=== PATIENT | male | born 1950 | race Caucasian/White ===

== ENCOUNTER 2023-03-04 15:46 | Inpatient (IN) | payer MEDICARE, OTHER ==
[~2023-03-04] VITALS: Ht 172.7 cm; Wt 92.5 kg
[2023-03-04] MEDS: MAGNESIUM SULFATE/D5W 100 ML IV SCH ×3 (03:15→20:38)
[2023-03-04] MEDS ORDERED: LISI10TA29 MT (16:08)
[2023-03-04] MEDS ORDERED: ALPR2TAB7 MT (16:08)
[2023-03-04] MEDS ORDERED: OMEP1CAP25 MT (16:08)
[2023-03-04] MEDS ORDERED: DICY10CA21 PO (16:08)
[2023-03-04] MEDS ORDERED: SIMV-46 MT (16:08)
[2023-03-04] MEDS ORDERED: GABA-532 (16:08)
[2023-03-04] MEDS ORDERED: ASPI-1420 MT (16:08)
[2023-03-04] MEDS ORDERED: METF-867 MT (16:08)
[2023-03-04] MEDS ORDERED: TRAM50TA2 MT (16:08)
[2023-03-04] MEDS ORDERED: ATEN25TA MT (16:08)
[2023-03-04] MEDS ORDERED: SERT-439 MT (16:08)
[2023-03-04 16:25] LABS: *BILIRUBIN,URIN NEGATIVE (NEGATIVE); *BLOOD, URINE 1+ (NEGATIVE); *CLARITY,URINE CLEAR (CLEAR); *COLOR,URINE YELLOW (YELLOW); *KETONES,URINE TRACE (NEGATIVE); *UROBILINOGEN,URINE 0.2 E.U./dl (NORMAL); LEUKOCYTE ESTERASE ,URINE NEGATIVE (NEGATIVE); NITRITE, URINE NEGATIVE (NEGATIVE); PH,URINE 5.5 (5.0-8.0); UGLUCOSE NEGATIVE (NEGATIVE)
[2023-03-04 16:28] LABS: HEMATOCRIT 41.1 % (36.7-47.1); MEAN CORPUSCULAR HEMOGLOBIN 28.7 uug (23.8-33.4); MEAN CORPUSCULAR VOLUME 85.9 fL (73.0-96.2); PLATELET COUNT (AUTO) 341 K/uL (152-348)
--- NOTE | 2023-03-04 16:31 | NUR ---
PT IS IN ROOM #2A. DR FISCHER EVALUATED THE PT.
[2023-03-04 16:39] LABS: CREATININE 1.1 mg/dL (0.6-1.3); POTASSIUM 2.9 mmol/L (3.5-5.1)
[2023-03-04 16:50] LABS: BILIRUBIN,DIRECT 0.2 mg/dL (0.0-0.2); BILIRUBIN,TOTAL 0.7 mg/dL (0.2-1.0); TOTAL PROTEIN, SERUM 7.6 g/dL (6.4-8.2)
[2023-03-04] MEDS ORDERED: LIDOCAINE 2% (GLYDO= UROJET) 10 ML JELLY MM ONE ×2 (18:30→19:07)
--- NOTE | 2023-03-04 18:57 | NUR ---
Dr. Garner on surgery phone call consult with Dr. Rudolph
[2023-03-04] MEDS ORDERED: METRONIDAZOLE 500 MG/NS 100 ML PIGGYBACK IV ONE (19:15)
[2023-03-04] MEDS ORDERED: MORPHINE SULFATE 2 MG/1 ML DISP.SYRIN IV PRN (19:30)
[2023-03-04] MEDS ORDERED: REMEDY ESSENTIAL ZINC PASTE 113 GM TP PRN (19:30)
[2023-03-04] MEDS ORDERED: MAGNESIUM HYDROXIDE 30 ML LIQUID UDC PO PRN (19:30)
[2023-03-04] MEDS ORDERED: HYDROCODONE/APAP 5-325MG TABLET PO PRN (19:30)
[2023-03-04] MEDS ORDERED: ACETAMINOPHEN 325 MG TABLET PO PRN (19:30)
[2023-03-04] MEDS ORDERED: IV D5 1/2 NS 1000 ML 1,000 ML IV PRN (19:30)
[2023-03-04] MEDS ORDERED: MAGNESIUM SULFATE/D5W 100 ML ONE ×3 (19:56→21:49)
--- NOTE | 2023-03-04 20:11 | NUR ---
NG placement verification by auscultation performed by myself and Charge Nurse Krzysztof BLACKMAN
--- NOTE | 2023-03-04 20:20 | NUR ---
Spoke to OR Nurse Tiera, patient is scheduled for surgery tonight at 22:00
[2023-03-04] MEDS ORDERED: POTASSIUM CHLORIDE 50 ML ONE ×2 (20:22→21:12)
[2023-03-04] MEDS: POTASSIUM CHLORIDE 50 ML IV SCH ×3 (20:33→22:15)
--- NOTE | 2023-03-04 20:40 | NUR ---
Second IV started to right AC 20G
[2023-03-04] MEDS ORDERED: METRONIDAZOLE 500 MG/NS 100ML 100 ML IV ONE (20:49)
[2023-03-04] MEDS ORDERED: CIPROFLOXACIN IV 400 MG in PREMIXED 1 EACH IV SCH ×2 (21:00)
[2023-03-04] MEDS ORDERED: GLYCOPYRROLATE 0.2 MG/ML VIAL ONE (21:30)
[2023-03-04] MEDS ORDERED: METOCLOPRAMIDE HCL 10 MG/2 ML VIAL ONE (21:30)
[2023-03-04] MEDS ORDERED: NEOSTIGMINE METHYLSULFATE 10 MG/10 ML VIAL ONE (21:30)
[2023-03-04] MEDS ORDERED: ONDANSETRON 4 MG/2 ML VIAL ONE (21:30)
[2023-03-04] MEDS ORDERED: LIDOCAINE-MPF 2% 5 ML VIAL ONE (21:30)
[2023-03-04] MEDS ORDERED: DEXAMETHASONE SOD PHOSPHATE 4 MG INJ ONE (21:30)
[2023-03-04] MEDS ORDERED: PROPOFOL 200 MG/20 ML BOTTLE ONE (21:30)
[2023-03-04] MEDS ORDERED: SUCCINYLCHOLINE CHLORIDE 200 MG/10 ML VIAL ONE (21:30)
[2023-03-04] MEDS ORDERED: CEFAZOLIN 1 G VIAL ONE (21:30)
--- NOTE | 2023-03-04 21:38 | NUR ---
Patient taken to OR via RN Tiera Addendum: 03/05/23 at 0421 by ROSE Report given to Tiera BLACKMAN
[2023-03-04] MEDS ORDERED: HYDROMORPHONE 2 MG/1 ML DISP.SYRIN ONE (21:53)
[2023-03-04] MEDS ORDERED: KETAMINE HCL 200 MG/20 ML VIAL ONE (21:53)
[2023-03-04] MEDS ORDERED: FENTANYL CITRATE 100 MCG/2 ML AMPUL ONE (21:53)
[2023-03-04] MEDS ORDERED: MIDAZOLAM HCL 2 MG/2 ML VIAL ONE (21:54)
[2023-03-04] MEDS ORDERED: DICYCLOMINE HCL 10 MG CAPSULE PO PRN (22:30)
[2023-03-04] MEDS ORDERED: DEXTROSE 50% 50 ML DISP.SYRIN IV PRN (22:30)
[2023-03-04] MEDS ORDERED: SEVOFLURANE 250 ML BOTTLE ONE (23:54)
[2023-03-05 00:08] LABS: BACTERIA,URINE RARE /HPF (NONE SEEN); SQUAMOUS EPITHELIAL CELL,UR FEW /HPF (NONE SEEN); WBC,URINE 0-3 /HPF (0-3)
[2023-03-05] MEDS ORDERED: BACITRACIN ZINC OINT 15 GM TUBE ONE (00:31)
[2023-03-05 02:56] LABS: HEMATOCRIT 42.6 % (36.7-47.1); MEAN CORPUSCULAR VOLUME 88.1 fL (73.0-96.2); PLATELET COUNT (AUTO) 310 K/uL (152-348)
[2023-03-05 03:03] LABS: CREATININE 1.1 mg/dL (0.6-1.3); MAGNESIUM 1.8 mg/dL (1.8-2.4); POTASSIUM 4.4 mmol/L (3.5-5.1)
--- NOTE | 2023-03-05 03:15 | NUR ---
Admitted patient on Tele floor from OR S/P Exploratory Lap, Left Hemicolectomy, proximal colostomy and Ortiz pouch creation by DR Holley Rudolph. Patient alert oriented, with NGT right nose connected to intermittently, patient has surgical dressing on abdomen, clean no blood stained seen, patient has tubbs cath draining with yellow color urine in moderate amount, JACLYN has 1/2 serosanguineous drainage[address]d in place, complaining of abdominal 9/10, will medicate as ordered, patient has colostomy bag beefy red in color with small red brownish color BM, cont to monitor.
[2023-03-05] MEDS ORDERED: HYDROMORPHONE 2 MG/1 ML DISP.SYRIN IM PRN (04:45)
[2023-03-05] MEDS: IV LACTATED RINGERS SOLUTION 1,000 ML IV PRN (04:45)
[2023-03-05 05:33] VITALS: BP 156/74
[2023-03-05] MEDS: METRONIDAZOLE 500 MG/NS 100ML 500 MG in PREMIXED 1 EACH IV SCH ×3 (05:37→20:14)
[2023-03-05] MEDS: CIPROFLOXACIN IV 400 MG in PREMIXED 1 EACH IV SCH ×2 (05:40→17:50)
[2023-03-05] MEDS: HYDROMORPHONE 2 MG/1 ML DISP.SYRIN IVP PRN ×3 (05:44→17:01)
[2023-03-05] MEDS: BLOOD SUGAR DIAGNOSTIC 1 EACH STRIP VI SCH ×4 (05:56→17:58)
[2023-03-05] MEDS: INSULIN REGULAR, HUMAN 300 UNIT/3 ML VIAL SQ PRN ×3 (06:00→17:59)
[2023-03-05] MEDS: LORAZEPAM 2 MG/1 ML VIAL IV SCH ×2 (06:00→20:46)
--- NOTE | 2023-03-05 06:52 | NUR ---
Patient asleep but arousable,complaining of pain, given Dilaudid 2mg iv for pain with help after 30 min, JACLYN has 60cc serosanguineous, tubbs has 450 cc yellow color urine, patient asleep now, no further complain of pain, NPO at this time, but can has ice chips, Ativan not given patient asleep, cont to monitor. t
[2023-03-05 06:56] LABS: HEMATOCRIT 39.1 % (36.7-47.1); MEAN CORPUSCULAR VOLUME 86.7 fL (73.0-96.2); PLATELET COUNT (AUTO) 320 K/uL (152-348)
[2023-03-05 07:33] LABS: THYROID STIMULATING HORMONE 1.013 mIU/mL (0.358-3.740)
[2023-03-05] MEDS ORDERED: HYDROCODONE/APAP 5-325MG TABLET NG PRN (07:51)
[2023-03-05] MEDS ORDERED: MAGNESIUM HYDROXIDE 30 ML LIQUID UDC NG PRN (07:52)
[2023-03-05 07:53] LABS: CARBON DIOXIDE 17 mmol/L (21-32); CHLORIDE 107 mmol/L (98-107); CREATININE 1.1 mg/dL (0.6-1.3); GLUCOSE 180 mg/dL (74-106); MAGNESIUM 1.8 mg/dL (1.8-2.4); PHOSPHOROUS 2.2 mg/dL (2.5-4.9); POTASSIUM 4.2 mmol/L (3.5-5.1); UREA NITROGEN, BLOOD 11 mg/dL (7-18)
[2023-03-05] MEDS ORDERED: ACETAMINOPHEN 650 MG/20.3 ML LIQUID UDC NG PRN (08:00)
[2023-03-05] MEDS ORDERED: DICYCLOMINE HCL LIQ 10 MG/5 ML UDC NG PRN (08:00)
[2023-03-05] MEDS ORDERED: PANTOPRAZOLE SODIUM 40 MG VIAL IV SCH (09:00)
[2023-03-05] MEDS ORDERED: ATENOLOL 25 MG TABLET NG SCH (09:00)
--- NOTE | 2023-03-05 09:26 | NUR ---
removed NGT tube and NPO except meds was ordered per Dr. Rudolph.
[2023-03-05 09:39] VITALS: BP 129/59
[2023-03-05] MEDS: SERTRALINE HCL 50 MG TABLET NG SCH (09:40)
[2023-03-05] MEDS: LISINOPRIL 10 MG TABLET NG SCH (09:40)
--- NOTE | 2023-03-05 09:48 | NUR ---
nursing swallo eval done. no dysphagia noted. pt tolerated PO meds.
[2023-03-05] MEDS ORDERED: NEUTRA PHOS PACKET PO ONE (10:00)
[2023-03-05] MEDS: MAGNESIUM SULFATE/D5W 100 ML IV SCH ×4 (10:23→13:01)
[2023-03-05 11:34] VITALS: BP 104/51
[2023-03-05 15:47] VITALS: BP 117/51
[2023-03-05] MEDS: SIMVASTATIN 20 MG TABLET NG SCH (17:51)
[2023-03-05 19:58] VITALS: BP 93/41
[2023-03-06 00:20] VITALS: BP 99/39
[2023-03-06] MEDS: INSULIN REGULAR, HUMAN 300 UNIT/3 ML VIAL SQ PRN ×3 (00:27→17:22)
[2023-03-06] MEDS: BLOOD SUGAR DIAGNOSTIC 1 EACH STRIP VI SCH ×5 (00:27→23:15)
[2023-03-06 04:05] VITALS: BP 112/49
[2023-03-06] MEDS: METRONIDAZOLE 500 MG/NS 100ML 500 MG in PREMIXED 1 EACH IV SCH ×3 (04:35→20:39)
--- NOTE | 2023-03-06 05:45 | NUR ---
SHIFT NOTE: RECEIVED PATIENT ALERT AND ORIENTED X4 REPORT GIVEN BY AM NURSE BERNARD. PATIENT HAS IV FLUID OF LR INFUSING AT 100 ML AND HOUR NO SIGNS ADVERSE REACTION FROM SITE. PT HAS O22L NC ALONG WITH INCENTIVE SPIROMETER. PT IS S/P HEMILECTOMY EX LAP PT HAS S/P LT COLOSTOMY, AND RT JACLYN DRAIN TOLERATING WELL PROCEDURE DONE BY DR RUELAS PT HAS GARSIA PATENT DRAINING CLEAR YELLOW URINE. PT IS ON TELEMONITOR SHOWS SINUS RHYTHM. PT HAS BEEN NPO SINCE MIDNIGHT FOR ULTRA SOUND OF THE ABD AND CHEST FULL BODY. NO SIGNS RESPIRATORY DISTRESS NOTED. FALL AND SAFETY PRECAUTION NOTED. WILL CONTINUE TO MONITOR FOR SAFETY. WILL ENDORSE TO AM NURSE.
[2023-03-06] MEDS: CIPROFLOXACIN IV 400 MG in PREMIXED 1 EACH IV SCH ×2 (06:04→16:23)
[2023-03-06 06:25] LABS: HEMATOCRIT 33.4 % (36.7-47.1); MEAN CORPUSCULAR HEMOGLOBIN 28.7 uug (23.8-33.4); MEAN CORPUSCULAR VOLUME 86.1 fL (73.0-96.2); PLATELET COUNT (AUTO) 278 K/uL (152-348)
[2023-03-06 06:42] LABS: CREATININE 1.2 mg/dL (0.6-1.3); MAGNESIUM 2.1 mg/dL (1.8-2.4); PHOSPHOROUS 2.2 mg/dL (2.5-4.9); POTASSIUM 4.7 mmol/L (3.5-5.1)
[2023-03-06] MEDS: IV LACTATED RINGERS SOLUTION 1,000 ML IV PRN ×2 (08:05→14:02)
[2023-03-06] MEDS: LORAZEPAM 2 MG/1 ML VIAL IV SCH ×2 (08:32→20:38)
[2023-03-06] MEDS: ATENOLOL 25 MG TABLET PO SCH (08:32)
[2023-03-06] MEDS: LISINOPRIL 10 MG TABLET NG SCH (08:33)
[2023-03-06] MEDS: SERTRALINE HCL 50 MG TABLET NG SCH (08:33)
[2023-03-06] MEDS: PANTOPRAZOLE ORAL SUSPENSION 40 MG SUSPDR.PKT NG SCH (08:34)
--- NOTE | 2023-03-06 09:00 | NUR ---
RCVD PT IN BED AAO X4. NPO. 2 LPM NC SATURATING 93%.
[2023-03-06 10:06] LABS: CANCER AG, 125 20.9 U/mL (Not Estab.)
[2023-03-06 11:34] VITALS: BP 98/50
[2023-03-06] MEDS: HYDROMORPHONE 2 MG/1 ML DISP.SYRIN IVP PRN (11:43)
[2023-03-06] MEDS ORDERED: IOHEXOL 300MG/ML 100 ML INFUS..BTL ONE (12:29)
[2023-03-06] MEDS ORDERED: SWABABLE VALVE TRANSFER SET EA MC ONE (12:29)
[2023-03-06] MEDS ORDERED: IV NORMAL SALINE 250 ML IV ONE (12:29)
[2023-03-06 15:33] VITALS: BP 102/51
[2023-03-06] MEDS ORDERED: NEUTRA PHOS PACKET NG ONE (16:00)
[2023-03-06] MEDS: SIMVASTATIN 20 MG TABLET NG SCH (17:04)
--- NOTE | 2023-03-06 18:06 | NUR ---
POSPONED CT ABD/CHEST/PELVIS WITH CONTRAST. PER DR RUELAS, HE DOESNT NEED AT THIS TIME BECAUSE OF POST SURGERY SITUATION. JASON MARIE AGREED ON THIS. PT. IN REGULAR DIET. IV LR ON LEFT AC AT 100CC/HR PATENT. JACLYN DRAIN 175CC. FC OUTPUT 260CC. PT. DENIES PAIN AT THIS TIME.
--- NOTE | 2023-03-06 18:22 | NUR ---
ADDENDUM: GARSIA OUTPUT IS TOTAL OF 1860 CC. COLOSTOMY OUTPUT IS 70CC.
[2023-03-06 20:08] VITALS: BP 101/40
[2023-03-07 00:11] VITALS: BP 105/51
[2023-03-07] MEDS: IV LACTATED RINGERS SOLUTION 1,000 ML IV PRN (01:32)
[2023-03-07] MEDS: HYDROMORPHONE 2 MG/1 ML DISP.SYRIN IVP PRN (02:28)
[2023-03-07 04:00] VITALS: BP 95/47
[2023-03-07] MEDS: METRONIDAZOLE 500 MG/NS 100ML 500 MG in PREMIXED 1 EACH IV SCH ×3 (04:07→21:09)
[2023-03-07] MEDS: CIPROFLOXACIN IV 400 MG in PREMIXED 1 EACH IV SCH ×2 (05:05→18:04)
[2023-03-07 06:38] LABS: HEMATOCRIT 36.8 % (36.7-47.1); MEAN CORPUSCULAR HEMOGLOBIN 28.8 uug (23.8-33.4); MEAN CORPUSCULAR VOLUME 86.8 fL (73.0-96.2); PLATELET COUNT (AUTO) 370 K/uL (152-348)
[2023-03-07] MEDS: BLOOD SUGAR DIAGNOSTIC 1 EACH STRIP VI SCH ×4 (06:43→21:00)
[2023-03-07] MEDS ORDERED: DICYCLOMINE HCL 10 MG CAPSULE PO PRN (07:15)
[2023-03-07] MEDS ORDERED: ACETAMINOPHEN 325 MG TABLET PO PRN (07:15)
[2023-03-07 07:16] LABS: CARBON DIOXIDE 25 mmol/L (21-32); CHLORIDE 101 mmol/L (98-107); CREATININE 1.4 mg/dL (0.6-1.3); GLUCOSE 128 mg/dL (74-106); MAGNESIUM 2.1 mg/dL (1.8-2.4); POTASSIUM 4.7 mmol/L (3.5-5.1); UREA NITROGEN, BLOOD 23 mg/dL (7-18)
--- NOTE | 2023-03-07 07:26 | NUR ---
REPORT GIVEN TO HIRAL WAGNER
[2023-03-07 08:50] VITALS: BP 102/52
[2023-03-07] MEDS: ATENOLOL 25 MG TABLET PO SCH (08:55)
[2023-03-07] MEDS: LISINOPRIL 10 MG TABLET NG SCH (08:55)
[2023-03-07] MEDS: SERTRALINE HCL 50 MG TABLET NG SCH (08:55)
[2023-03-07] MEDS: PANTOPRAZOLE ORAL SUSPENSION 40 MG SUSPDR.PKT NG SCH (08:55)
[2023-03-07] MEDS ORDERED: HYDROCODONE/APAP 5-325MG TABLET PO PRN (11:01)
[2023-03-07] MEDS ORDERED: MAGNESIUM HYDROXIDE 30 ML LIQUID UDC PO PRN (11:02)
[2023-03-07 11:39] VITALS: BP 105/46
[2023-03-07 16:00] VITALS: BP 109/55
[2023-03-07] MEDS: LORAZEPAM 2 MG/1 ML VIAL IV PRN ×2 (18:04→23:32)
--- NOTE | 2023-03-07 19:05 | NUR ---
shift report: pt aox3. in no acute distress. amb w/fww w/ PT. pt on 2L saturating at 94-95. pt denies pain and nausea/vomiting. colostomy bag replaced. 30cc of brown liquid stool noted. JACLYN drain draining well 375 ml of serosanguineous fluid noted. i spoke with dr. scott regarding the concern of inflamed ostomy but said its was normal and there nothing concerning. pt still on ABX tx. FC patent and draining yellow urine. safety measure in placed. all need attended.
[2023-03-07 20:00] VITALS: BP 110/59
[2023-03-07] MEDS ORDERED: SIMVASTATIN 20 MG TABLET PO SCH (21:00)
[2023-03-07] MEDS: ATORVASTATIN 10 MG TABLET PO SCH (21:09)
[2023-03-07] MEDS: PIPERACILLIN SODIUM/TAZOBACTAM 3.375 G in IV DEXTROSE 5% 50 ML IV SCH (22:46)
[2023-03-08] VITALS: BP 102/45
--- NOTE | 2023-03-08 00:34 | NUR ---
shift report: Spoke to Dr. Rudolph regarding pt. concern of draining from tubbs. Dr. Rudolph advised to flushed and do bladder scan and give pt ativan and pain meds. Pt flushed and bladder scan done = 5ml .Pt given ativan and NOrco. Pt is sleeping at this time
[2023-03-08] MEDS: IV LACTATED RINGERS SOLUTION 1,000 ML IV PRN ×3 (01:39→22:15)
[2023-03-08] MEDS: ONDANSETRON 4 MG/2 ML VIAL IV PRN ×2 (03:56→06:18)
[2023-03-08 04:00] VITALS: BP 106/51
[2023-03-08] MEDS: CIPROFLOXACIN IV 400 MG in PREMIXED 1 EACH IV SCH (05:00)
[2023-03-08] MEDS: BLOOD SUGAR DIAGNOSTIC 1 EACH STRIP VI SCH ×3 (06:23→18:26)
[2023-03-08] MEDS: PIPERACILLIN SODIUM/TAZOBACTAM 3.375 G in IV DEXTROSE 5% 50 ML IV SCH (06:27)
--- NOTE | 2023-03-08 06:44 | NUR ---
Pt vomited large amount of dark coffee ground emesis around 0330. Dr. Rudolph was contacted to request order for NGT. Doctor ordered to put pt on NPO and to stop Tylenol and Neurontin. Stanley tai
[2023-03-08 06:46] LABS: HEMATOCRIT 39.3 % (36.7-47.1); MEAN CORPUSCULAR HEMOGLOBIN 28.8 uug (23.8-33.4); MEAN CORPUSCULAR VOLUME 85.9 fL (73.0-96.2); PLATELET COUNT (AUTO) 439 K/uL (152-348)
[2023-03-08 07:00] LABS: ALANINE AMINOTRANSFERASE 20 U/L (16-63); ALKALINE PHOSPHATASE 59 U/L (50-136); ASPARTATE AMINOTRANSFERASE 14 U/L (15-37); BILIRUBIN,TOTAL 0.6 mg/dL (0.2-1.0); CARBON DIOXIDE 26 mmol/L (21-32); CHLORIDE 98 mmol/L (98-107); CREATINE KINASE, TOTAL 176 U/L (39-308); CREATININE 1.4 mg/dL (0.6-1.3); GLUCOSE 140 mg/dL (74-106); MAGNESIUM 1.9 mg/dL (1.8-2.4); PHOSPHOROUS 3.9 mg/dL (2.5-4.9); POTASSIUM 4.4 mmol/L (3.5-5.1); TOTAL PROTEIN, SERUM 6.4 g/dL (6.4-8.2); UREA NITROGEN, BLOOD 26 mg/dL (7-18)
[2023-03-08] MEDS ORDERED: PANTOPRAZOLE SODIUM 40 MG TABLET.DR PO SCH (07:00)
--- NOTE | 2023-03-08 07:25 | NUR ---
Received pt. AAOX4, cooperative with care plan, On NSR with sbp within desired limits. IV line TKO and a couple of antibiotics notice to be hanging and full with medications. Clarification requested and as per endorsing R.N. medications not compatible and he is running them late. Antibiotic completed at 0830. and as reported pt. HL despite having an order for fluids. IVF resumed as ordered. MLine abdominal incision with original dressing on no s/s of complications, ileostomy in place noted with watery stools. Andres to RLQ with serous sanguinous output. tubbs to gravity, and pt. NPO.
[2023-03-08 08:00] VITALS: BP 109/51
[2023-03-08] MEDS ORDERED: SERTRALINE HCL 50 MG TABLET PO SCH (09:00)
[2023-03-08] MEDS: ATENOLOL 25 MG TABLET PO SCH (09:00)
--- NOTE | 2023-03-08 09:40 | NUR ---
Surgeon Ronni at bedside and updating pt. of care plan. Pt. also verbalized feeling depressed and express desire to be dcd immediately. educated pt. on post surgery plan and then order ativan to be given. At this time attending Olegario Hernandez also came to follow up on pt and He's aware of surgeons orders. At this time orders to give ativan only if pt. show signs of distress and feeling uneasy. awaiting orders for antidepressants as stated by attending.
[2023-03-08 11:39] VITALS: BP 112/53
--- NOTE | 2023-03-08 12:47 | NUR ---
WOUND CARE CONSULT: PT PRESENTS WITH DRY, INTACT ABDOMINAL SURGICAL DRESSING, JACLYN DRAIN AND OSTOMY. DEFER TO SURGEON FOR SURGICAL SITES. DISCUSSED SKIN PROTECTION WITH NURSING STAFF. PT IS CONTINENT AT THIS TIME WITH OSTOMY AND GARSIA CATH. IN AGREEMENT WITH PLAN OF CARE.
[2023-03-08] MEDS: QUETIAPINE FUMARATE 25 MG TABLET PO SCH (13:02)
[2023-03-08] MEDS: PIPERACILLIN SODIUM/TAZOBACTAM 3.375 G in IV DEXTROSE 5% 100 ML IV SCH ×2 (13:02→21:59)
[2023-03-08] MEDS ORDERED: PIPERACILLIN SODIUM/TAZOBACTAM 3.375 G in IV DEXTROSE 5% 50 ML IV SCH (14:00)
[2023-03-08 15:47] VITALS: BP 101/55
[2023-03-08] MEDS: PANTOPRAZOLE SODIUM 40 MG VIAL IV SCH (16:26)
--- NOTE | 2023-03-08 18:05 | NUR ---
A call from Surgeon Dr. Rudolph report given and orders to start pt. on malox received first dose to be given now.
[2023-03-08] MEDS ORDERED: MAG HYDROX/AL HYDROX/SIMETH 30 ML LIQUID UDC PO PRN (18:15)
--- NOTE | 2023-03-08 19:30 | NUR ---
Received patient in bed awake, alert and oriented x3, in no acute distress. No complain of abdominal pain, no episode of vomiting. Abdominal incision with original dressing in placed. Ileostomy intact connected to bag with liquid stool. JACLYN to bulb suction with serosanguineous discharge. Cross cath intact and patent draining to yellow color urine.
[2023-03-08 20:22] VITALS: BP 111/52
[2023-03-08] MEDS: ATORVASTATIN 10 MG TABLET PO SCH (21:00)
[2023-03-09 00:05] VITALS: BP 115/45
[2023-03-09] MEDS: MAG HYDROX/AL HYDROX/SIMETH 30 ML LIQUID UDC PO SCH ×6 (00:06→20:07)
[2023-03-09] MEDS: BLOOD SUGAR DIAGNOSTIC 1 EACH STRIP VI SCH ×4 (00:06→18:20)
[2023-03-09 04:20] VITALS: BP 112/56
[2023-03-09] MEDS: IV LACTATED RINGERS SOLUTION 1,000 ML IV PRN ×3 (05:04→20:08)
[2023-03-09] MEDS: PIPERACILLIN SODIUM/TAZOBACTAM 3.375 G in IV DEXTROSE 5% 100 ML IV SCH ×3 (05:56→21:33)
--- NOTE | 2023-03-09 07:13 | NUR ---
Slept well throughout the night, no complain of abdominal pain, no nausea/vomiting. VS within normal limits. Needs assessed and attended to.
[2023-03-09 07:46] LABS: HEMATOCRIT 34.4 % (36.7-47.1); MEAN CORPUSCULAR HEMOGLOBIN 29.5 uug (23.8-33.4); MEAN CORPUSCULAR VOLUME 86.5 fL (73.0-96.2); PLATELET COUNT (AUTO) 327 K/uL (152-348)
--- NOTE | 2023-03-09 08:00 | NUR ---
Received pt. lying in bed awake, alert and oriented. Pt. with IVF LR at 150cc/hr at RAC #20 intact and patent, SR on tele at 78 bpm not in distress, no complain of pain or . Pt. with O2 inhalation at 2 lpm saturating at 93%. Pt. with tubbs catheter connected to urine bag. Ileostomy bag intact and JACLYN drain monitored and recorded
[2023-03-09 08:10] VITALS: BP 115/51
[2023-03-09 09:00] LABS: CARBON DIOXIDE 26 mmol/L (21-32); CHLORIDE 103 mmol/L (98-107); CREATININE 1.3 mg/dL (0.6-1.3); GLUCOSE 100 mg/dL (74-106); MAGNESIUM 1.6 mg/dL (1.8-2.4); PHOSPHOROUS 2.6 mg/dL (2.5-4.9); POTASSIUM 4.1 mmol/L (3.5-5.1); UREA NITROGEN, BLOOD 21 mg/dL (7-18)
[2023-03-09] MEDS: PANTOPRAZOLE SODIUM 40 MG VIAL IV SCH (09:27)
[2023-03-09] MEDS: QUETIAPINE FUMARATE 25 MG TABLET PO SCH ×2 (09:28→12:03)
[2023-03-09] MEDS: ATENOLOL 25 MG TABLET PO SCH (09:28)
--- NOTE | 2023-03-09 09:55 | NUR ---
Seen and examined by Cindy TRIM OPERATOR, continue care plan
[2023-03-09 11:31] VITALS: BP 107/47
[2023-03-09 16:00] VITALS: BP 121/55
[2023-03-09 17:06] LABS: A/G RATIO 0.8 (0.7-1.7); ALBUMIN 2.5 g/dL (2.9-4.4); ALPHA-1-GLOBULIN 0.4 g/dL (0.0-0.4); ALPHA-2-GLOBULIN 1.1 g/dL (0.4-1.0); BETA GLOBULIN 0.9 g/dL (0.7-1.3); GLOBULIN, TOTAL 3.3 g/dL (2.2-3.9); M-SPIKE Not Observed g/dL (Not Observed)
[2023-03-09] MEDS: ATORVASTATIN 10 MG TABLET PO SCH (20:07)
[2023-03-09 20:53] VITALS: BP 125/58
[2023-03-09] MEDS: ZOLPIDEM 5 MG TABLET PO PRN (22:53)
[2023-03-09] MEDS: HYDROMORPHONE 1 MG/1 ML DISP.SYRIN IV PRN (23:14)
[2023-03-10] MEDS: BLOOD SUGAR DIAGNOSTIC 1 EACH STRIP VI SCH ×4 (00:04→18:04)
[2023-03-10] MEDS: MAG HYDROX/AL HYDROX/SIMETH 30 ML LIQUID UDC PO SCH ×6 (00:05→20:00)
[2023-03-10] MEDS: LORAZEPAM 2 MG/1 ML VIAL IV PRN (03:14)
[2023-03-10] MEDS: IV LACTATED RINGERS SOLUTION 1,000 ML IV PRN (03:20)
[2023-03-10] MEDS: HYDROMORPHONE 1 MG/1 ML DISP.SYRIN IV PRN ×2 (03:49→09:07)
[2023-03-10 04:20] VITALS: BP 131/65
[2023-03-10] MEDS: PIPERACILLIN SODIUM/TAZOBACTAM 3.375 G in IV DEXTROSE 5% 100 ML IV SCH ×3 (05:58→22:22)
--- NOTE | 2023-03-10 06:44 | NUR ---
Slept intermittently, easy to arouse alert and oriented x3. No adverse reaction from IV antibiotic. Complain of abdominal pain, no nausea/vomiting. Colostomy intact with liquid stool. Cross cath intact w/ yellow color urine output.
[2023-03-10 07:03] LABS: HEMATOCRIT 37.4 % (36.7-47.1); MEAN CORPUSCULAR HEMOGLOBIN 29.6 uug (23.8-33.4); MEAN CORPUSCULAR VOLUME 86.4 fL (73.0-96.2); PLATELET COUNT (AUTO) 382 K/uL (152-348)
[2023-03-10 07:53] LABS: CARBON DIOXIDE 27 mmol/L (21-32); CHLORIDE 100 mmol/L (98-107); CREATININE 1.1 mg/dL (0.6-1.3); GLUCOSE 116 mg/dL (74-106); MAGNESIUM 1.6 mg/dL (1.8-2.4); PHOSPHOROUS 3.4 mg/dL (2.5-4.9); POTASSIUM 4.2 mmol/L (3.5-5.1); UREA NITROGEN, BLOOD 16 mg/dL (7-18)
--- NOTE | 2023-03-10 08:00 | NUR ---
Received patient awake, alert and oriented. SR on tele HR at 74bpm, with O2 inhalation at 2 lpm via nasal cannula. Cross catheter connected to urine bag draining well. Patient with JACLYN drain monitoring output and Ostomy bag intact. 0900 - Patient complaining of pain, Dilaudid IV given as needed. Observed accordingly
[2023-03-10] MEDS: PANTOPRAZOLE SODIUM 40 MG VIAL IV SCH (08:15)
[2023-03-10] MEDS: ATENOLOL 25 MG TABLET PO SCH (08:16)
[2023-03-10] MEDS: QUETIAPINE FUMARATE 25 MG TABLET PO SCH ×2 (08:16→13:00)
[2023-03-10] MEDS ORDERED: SWABABLE VALVE TRANSFER SET EA MC ONE (08:58)
[2023-03-10] MEDS ORDERED: IOHEXOL 300MG/ML 100 ML INFUS..BTL ONE (08:58)
[2023-03-10] MEDS ORDERED: IV NORMAL SALINE 250 ML IV ONE (08:58)
[2023-03-10] MEDS: MAGNESIUM SULFATE/D5W 100 ML IV SCH ×2 (09:10→11:01)
[2023-03-10 11:03] VITALS: BP 132/70
[2023-03-10] MEDS: INSULIN REGULAR, HUMAN 300 UNIT/3 ML VIAL SQ PRN ×2 (11:52→18:05)
[2023-03-10] MEDS ORDERED: IV D5 1/2 NS 1000 ML 1,000 ML IV PRN (13:15)
--- NOTE | 2023-03-10 13:30 | NUR ---
Inserted NGT, NPO except meds. Hooked to IVF D5NS 1L @ 50cc/hr. Patient vomited during insertion with greenish output.
[2023-03-10 13:40] LABS: FERRITIN 380 ng/mL (26-388)
[2023-03-10] MEDS: IV D5/ 0.9% NACL 1,000 ML IV PRN (13:54)
[2023-03-10 14:06] LABS: IRON, SERUM 19 ug/dL (50-175)
[2023-03-10 15:16] VITALS: BP 117/63
--- NOTE | 2023-03-10 17:09 | NUR ---
Placed NG tube on low intermittent suction. No complain at this time. Encouraged to use incentive spirometer. Turned patient every 2 hours. Needs attended
[2023-03-10 20:00] VITALS: BP 108/53
[2023-03-10] MEDS: ATORVASTATIN 10 MG TABLET PO SCH (21:00)
[2023-03-10] MEDS: ZOLPIDEM 5 MG TABLET PO PRN (22:36)
[2023-03-11] MEDS: BLOOD SUGAR DIAGNOSTIC 1 EACH STRIP VI SCH ×4 (00:08→20:50)
[2023-03-11] MEDS: INSULIN REGULAR, HUMAN 300 UNIT/3 ML VIAL SQ PRN ×3 (00:13→20:51)
[2023-03-11] MEDS: LORAZEPAM 2 MG/1 ML VIAL IV PRN (03:17)
[2023-03-11] MEDS: MAG HYDROX/AL HYDROX/SIMETH 30 ML LIQUID UDC PO SCH ×2 (03:31)
[2023-03-11 04:40] VITALS: BP 106/60
[2023-03-11] MEDS ORDERED: PHENAZOPYRIDINE HCL 100 MG TABLET PO ONE ×2 (06:00→14:00)
[2023-03-11] MEDS: PIPERACILLIN SODIUM/TAZOBACTAM 3.375 G in IV DEXTROSE 5% 100 ML IV SCH ×3 (06:06→21:27)
[2023-03-11 06:31] LABS: HEMATOCRIT 36.2 % (36.7-47.1); MEAN CORPUSCULAR HEMOGLOBIN 29.4 uug (23.8-33.4); MEAN CORPUSCULAR VOLUME 85.3 fL (73.0-96.2); PLATELET COUNT (AUTO) 376 K/uL (152-348)
[2023-03-11 07:27] LABS: CARBON DIOXIDE 28 mmol/L (21-32); CHLORIDE 100 mmol/L (98-107); CREATININE 1.4 mg/dL (0.6-1.3); GLUCOSE 125 mg/dL (74-106); MAGNESIUM 1.9 mg/dL (1.8-2.4); PHOSPHOROUS 2.3 mg/dL (2.5-4.9); POTASSIUM 4.1 mmol/L (3.5-5.1); UREA NITROGEN, BLOOD 14 mg/dL (7-18)
--- NOTE | 2023-03-11 07:59 | NUR ---
Slept intermittently, no c/o abdominal pain, no nausea or vomiting. Accidentally pulled out NGT, reinserted. Placed xray order to confirm NGT placement.
[2023-03-11] MEDS ORDERED: DIATR MEGLU/DIATRIZOATE SODIUM 30 ML BOTTLE ONE (10:05)
[2023-03-11] MEDS: QUETIAPINE FUMARATE 25 MG TABLET PO SCH ×2 (10:24→12:23)
[2023-03-11 10:25] VITALS: BP 133/66
[2023-03-11] MEDS: PANTOPRAZOLE SODIUM 40 MG VIAL IV SCH (10:25)
[2023-03-11] MEDS: ATENOLOL 25 MG TABLET PO SCH (10:25)
[2023-03-11] MEDS: IV D5/ 0.9% NACL 1,000 ML IV PRN (10:34)
[2023-03-11] MEDS ORDERED: MAGNESIUM SULFATE/D5W 100 ML IV ONE (11:00)
[2023-03-11 11:36] VITALS: BP 125/64
[2023-03-11] MEDS: MAGNESIUM SULFATE/D5W 100 ML IV SCH ×3 (12:16→18:39)
[2023-03-11] MEDS ORDERED: NEUTRA PHOS PACKET PO ONE (16:00)
[2023-03-11 16:06] VITALS: BP 116/64
[2023-03-11] MEDS ORDERED: DEXTROSE 50% 50 ML DISP.SYRIN IV PRN (18:30)
--- NOTE | 2023-03-11 19:40 | NUR ---
Received patient in bed, awake no sob no chest pain, family at bedside, patient colostomy bag draining with black greenish feces, watery in moderate to large amount, patient denies pain, no nausea no vomiting at this time, tolerate current diet. cont to monitor.
[2023-03-11 20:15] VITALS: BP 131/65
--- NOTE | 2023-03-11 20:15 | NUR ---
RN RECEIVED REPORT FROM HIRAL RODGERS, NOC SHIFT. PATIENT IS ALERT AND ORIENTED X3-4 AND VITAL SIGNS STABLE. PATIENT DENIES PAIN. PATIENT NPO UNTIL DINNER TIME; PATIENT TOLERATES PO & IV MEDICATIONS AND CLEAR LIQUIDS DIET WELL. NO NAUSEA AND VOMITING REPORTED. PATIENT UNABLE TO PARTICIPATE WITH PHYSICAL THERAPY DUE TO X-RAY SMALL BOWEL FOLLOW THROUGH. PATIENT'S FAMILY VISITED. DR. RUELAS REMOVED JACLYN DRAIN, AND PERFORMED DRESSING CHANGE. ORDERS CARRIED OUT FOR DR. RUELAS REQUESTED. NG TUBE REMOVED AT 16:42PM PER DR. RUELAS'S ORDER. CLEAR LIQUIDS STARTED. UPDATED BLOOD SUGAR AND INSULIN POLICY PER HOSPITALIST PROVIDER. OSTOMY DRAINING WELL. OUTPUT NOTED. NO ACUTE DISTRESS NOTED. ALL NEEDS MET AT THIS TIME. RN ENDORSED CONTINUATION OF CARE TO HIRAL PANTOJA, FOR THE CONTINUATION OF CARE.
[2023-03-11] MEDS: ATORVASTATIN 10 MG TABLET PO SCH (20:44)
--- NOTE | 2023-03-11 23:51 | NUR ---
DR RUELAS CALLED THE STATION WITH ORDER TO GIVE PYRIUM PO MEDS BEFORE AND AFTER DISCONTINUING THE GARSIA CATH. DR RUELAS WAS NOTIFIED THAT COLOSTOMY BAG DRAINING WITH LARGE AMOUNT OF WATERY FLUID/FECES, 1000CC IN 6 HOURS, MD DISCONTINUE ALL ABX.
[2023-03-12] MEDS: ZOLPIDEM 5 MG TABLET PO PRN (00:25)
[2023-03-12 04:21] VITALS: BP 128/62
--- NOTE | 2023-03-12 04:29 | NUR ---
Patient asleep but arousable, no sob no chest pain, colostomy bag draining with greenish black color feces. watery consistency, no nausea no vomiting at this time, all antibiotic stop, with episode of anxiety, call light within reach, cont to monitor.
[2023-03-12] MEDS ORDERED: PHENAZOPYRIDINE HCL 100 MG TABLET PO ONE ×2 (06:00→14:00)
[2023-03-12] MEDS: BLOOD SUGAR DIAGNOSTIC 1 EACH STRIP VI SCH ×4 (06:45→21:00)
[2023-03-12 06:54] LABS: HEMATOCRIT 35.7 % (36.7-47.1); MEAN CORPUSCULAR VOLUME 86.8 fL (73.0-96.2); PLATELET COUNT (AUTO) 345 K/uL (152-348)
--- NOTE | 2023-03-12 07:04 | NUR ---
Patient has order to discontinue tubbs cath, given pyridium as ordered, one hour before, tries to remove tubbs cath but has resistance to it, ask another RN to check, but successful, tubbs was flush with sterile water, good retun, applied lubricating yelly to help on sliding out the tubbs, but not effective, will notify MD, and endorse to next shift.
[2023-03-12 07:55] LABS: ALANINE AMINOTRANSFERASE 18 U/L (16-63); ALKALINE PHOSPHATASE 54 U/L (50-136); ASPARTATE AMINOTRANSFERASE 21 U/L (15-37); BILIRUBIN,TOTAL 0.3 mg/dL (0.2-1.0); CARBON DIOXIDE 26 mmol/L (21-32); CHLORIDE 101 mmol/L (98-107); CREATININE 1.3 mg/dL (0.6-1.3); GLUCOSE 124 mg/dL (74-106); MAGNESIUM 2.2 mg/dL (1.8-2.4); PHOSPHOROUS 3.2 mg/dL (2.5-4.9); POTASSIUM 3.5 mmol/L (3.5-5.1); TOTAL PROTEIN, SERUM 5.7 g/dL (6.4-8.2); UREA NITROGEN, BLOOD 11 mg/dL (7-18)
[2023-03-12] MEDS: PANTOPRAZOLE SODIUM 40 MG VIAL IV SCH (08:05)
[2023-03-12] MEDS: QUETIAPINE FUMARATE 25 MG TABLET PO SCH ×2 (08:05→13:18)
[2023-03-12] MEDS: ATENOLOL 25 MG TABLET PO SCH (08:05)
[2023-03-12] MEDS: HYDROMORPHONE 1 MG/1 ML DISP.SYRIN IV PRN (08:06)
[2023-03-12 08:53] LABS: CREATINE KINASE, TOTAL 33 U/L (39-308)
[2023-03-12] MEDS: INSULIN REGULAR, HUMAN 300 UNIT/3 ML VIAL SQ PRN (10:56)
[2023-03-12 11:51] VITALS: BP 122/65
[2023-03-12 16:00] VITALS: BP 137/61
--- NOTE | 2023-03-12 16:35 | NUR ---
patient refused accucheck stated he is not diabetic. risks and benefits explained, patient verbalized understanding of it. no distress noted at this time, colostomy drained brown liquid 400ml. patient ambulated in the hallway, voiding in urinal, eating meals, and drinking liquids, tolerating well, no nausea, no vomiting noted.
--- NOTE | 2023-03-12 19:08 | NUR ---
patient is alert, oriented x3, no distress noted
[2023-03-12 20:00] VITALS: BP 116/61
[2023-03-12] MEDS: ATORVASTATIN 10 MG TABLET PO SCH (20:43)
[2023-03-12] MEDS ORDERED: ZOLPIDEM 5 MG TABLET PO PRN (21:30)
[2023-03-13] VITALS: BP 129/62
[2023-03-13 04:00] VITALS: BP 126/51
[2023-03-13 06:25] LABS: MEAN CORPUSCULAR HEMOGLOBIN 28.4 uug (23.8-33.4); MEAN CORPUSCULAR VOLUME 86.1 fL (73.0-96.2); PLATELET COUNT (AUTO) 345 K/uL (152-348)
[2023-03-13 06:47] LABS: CREATININE 1.2 mg/dL (0.6-1.3); MAGNESIUM 1.6 mg/dL (1.8-2.4); PHOSPHOROUS 2.8 mg/dL (2.5-4.9); POTASSIUM 3.5 mmol/L (3.5-5.1)
[2023-03-13] MEDS: BLOOD SUGAR DIAGNOSTIC 1 EACH STRIP VI SCH ×2 (07:29→11:30)
[2023-03-13] MEDS: PANTOPRAZOLE SODIUM 40 MG VIAL IV SCH (08:18)
[2023-03-13] MEDS: QUETIAPINE FUMARATE 25 MG TABLET PO SCH ×2 (08:18→13:14)
[2023-03-13] MEDS: ATENOLOL 25 MG TABLET PO SCH (08:18)
[2023-03-13] MEDS: MAGNESIUM SULFATE/D5W 100 ML IV SCH ×2 (11:14→12:04)
[2023-03-13 11:31] VITALS: BP 115/61
--- NOTE | 2023-03-13 12:11 | NUR ---
Patient refused blood sugar to be checked and stated, it was checked in the morning, and risks and benefits explained, patient verbalized understanding of it. no signs and symptoms of distress noted. colostomy bag changed, demonstrated how to take care of colostomy bag at home, with and patient at bedside, and patient verbalized understanding of it. explained to and patient when to seek medical help and how to check for healthy stoma every day. patient son was bedside as well. patient abdomen incision line is dry and clean, no discharge noted, tra intact, instructed patient to follow up with primary care doctor and with surgeon in one week. patient and family verbalized understanding of it. Addendum: 03/13/23 at 1909 by DANIELLE RICKETTS RN, RN patient oxygen was removed, checked o2 sat, saturating mid 90s on room air, no distress, patient performed Incentive Spirometer and this financial writer instructed the patient to perform at home every hour for 10 times. patient verbalized understanding of it.
[2023-03-13] MEDS ORDERED: DOCU-141 PO (13:28)
[2023-03-13] MEDS ORDERED: PANT40TA2 PO (13:28)
[2023-03-13] MEDS ORDERED: HYDR-3972 PO (13:28)
[2023-03-13 14:00] VITALS: BP 121/58
--- NOTE | 2023-03-13 14:00 | NUR ---
patient and family bedside, patient stated he would like to go home now. explained to family and patient that social work case manager has to follow up on supplies needed for home. patient stated, I would like to go home today" JASON White made aware that patient would like to go home today. patient discharged home with family. patient is alert, oriented x3, ambulatory independently. no sob, respirations are even nonlabored skin warm and dry to touch, tolerated meals, no nausea, no vomiting. empties colostomy once, kept clean and dry. Addendum: 03/13/23 at 1516 by DANIELLE RICKETTS RN, RN IV and ID removed Addendum: 03/13/23 at 1630 by DANIELLE RICKETTS RN, RN patient stated, dr ray surgeon called the patient on his cell phone and surgeon said that he ( patient ) can go home today. patient was eager to go home and kept saying he wants to go home right away. son on the bedside stated they are going to follow up with surgeon outpatient. They have the surgeon information with them.
== END 2023-03-13 14:30 | disposition home health service (06) | DRG 329 ==
LOC: ER 15:46 → TELE3 21:41 → MEDSURG3 03-10 10:41
PROVIDERS: ADMIT Registered Nurse; ATTEND Registered Nurse
PROC: 0DTG0ZZ Resection of Left Large Intestine, Open Approach (ICD-10-PCS; principal; 2023-03-04)
PROC: 0D1H0Z4 Bypass Cecum to Cutaneous, Open Approach (ICD-10-PCS; 2023-03-04)
PROC: 0D9670Z Drainage of Stomach with Drainage Device, Via Natural or Artificial Opening (ICD-10-PCS; 2023-03-04)
PROC: 05HC33Z Insertion of Infusion Device into Left Basilic Vein, Percutaneous Approach (ICD-10-PCS; 2023-03-08)
DX: C18.6 Malignant neoplasm of descending colon (principal); N17.0 Acute kidney failure with tubular necrosis; R65.10 Systemic inflammatory response syndrome (SIRS) of non-infectious origin without acute organ dysfunction; R18.0 Malignant ascites; K56.609 Unspecified intestinal obstruction, unspecified as to partial versus complete obstruction; K56.7 Ileus, unspecified; E11.9 Type 2 diabetes mellitus without complications; K21.9 Gastro-esophageal reflux disease without esophagitis; Z68.31 Body mass index [BMI] 31.0-31.9, adult; K80.20 Calculus of gallbladder without cholecystitis without obstruction; F41.9 Anxiety disorder, unspecified; Z79.899 Other long term (current) drug therapy; E66.01 Morbid (severe) obesity due to excess calories; D50.9 Iron deficiency anemia, unspecified; D75.839 Thrombocytosis, unspecified
CPT/HCPCS: 36415; 71045; 71260; 74018; 74250; 82378; 83550; 83690; 83735; 83970; 84100; 84155; 84165; 84443; 85025; 87040; 88342; 93005; A4649; A4663; C9113; G0378; J0330; J0690; J0744; J1100; J1170; J1815; J2060; J2250; J2405; J2543; J2765; J3010; J3475; J3480; J3490; J7040; J7042; J7120; Q9963; Q9967

== ENCOUNTER 2023-10-17 07:27 | Day surgery (SDC) | payer MEDICARE, OTHER ==
[~2023-10-17 07:27] MED LIST: ALPR2TAB7 MT; ASPI-1420 MT; ATEN25TA MT; DICY10CA21 PO; DOCU-141 PO; GABA-532; HYDR-3972 PO; LISI10TA29 MT; METF-867 MT; OMEP1CAP25 MT; PANT40TA2 PO; SERT-439 MT; SIMV-46 MT; TRAM50TA2 MT
[2023-10-17 08:18] LABS: *CLARITY,URINE CLEAR (CLEAR); *COLOR,URINE YELLOW (YELLOW); *KETONES,URINE NEGATIVE (NEGATIVE); *PROTEIN,URINE 1+ (NEGATIVE); *UROBILINOGEN,URINE 0.2 E.U./dl (NORMAL); LEUKOCYTE ESTERASE ,URINE NEGATIVE (NEGATIVE); NITRITE, URINE NEGATIVE (NEGATIVE); PH,URINE 5.5 (5.0-8.0); UGLUCOSE NEGATIVE (NEGATIVE)
[2023-10-17 08:18] LABS: BASOPHILS # (AUTO) 0.1 K/UL (0.0-0.2); BASOPHILS % (AUTO) 1.2 % (0.0-2.0); EOSINOPHILS # (AUTO) 0.2 K/uL (0.0-0.7); EOSINOPHILS % (AUTO) 3.7 % (0.0-7.0); HEMATOCRIT 38.9 % (36.7-47.1); HEMOGLOBIN 13.6 g/dL (12.5-16.3); LYMPHOCYTES # (AUTO) 1.9 K/uL (0.8-4.8); LYMPHOCYTES % (AUTO) 35.8 % (20.5-51.5); MEAN CORPUSCULAR HEMOGLOBIN 35.2 uug (23.8-33.4); MEAN CORPUSCULAR HGB CONC 35 g/dL (32.5-36.3); MEAN CORPUSCULAR VOLUME 100.9 fL (73.0-96.2); MONOCYTES # (AUTO) 0.6 K/uL (0.1-1.30); MONOCYTES % (AUTO) 10.8 % (0.0-11.0); NEUTROPHILS # (AUTO) 2.6 K/uL (1.8-8.9); NEUTROPHILS % (AUTO) 48.5 % (38.5-71.5); PLATELET COUNT (AUTO) 169 K/uL (152-348); RED BLOOD CELL COUNT(AUTO) 3.85 MIL/uL (4.06-5.63); WHITE BLOOD COUNT (AUTO) 5.4 K/uL (3.6-10.2)
[2023-10-17] MEDS ORDERED: PROPOFOL 200 MG/20 ML BOTTLE ONE (08:26)
[2023-10-17] MEDS ORDERED: SIMETHICONE 40 MG/0.6 ML, 30ML BOTTLE ONE (08:26)
[2023-10-17] MEDS ORDERED: LIDOCAINE-MPF 2% 5 ML VIAL ONE (08:26)
[2023-10-17] MEDS ORDERED: GLYCOPYRROLATE 0.2 MG/ML VIAL ONE (08:26)
[2023-10-17 08:31] LABS: *BLOOD, URINE TRACE (NEGATIVE)
[2023-10-17 08:32] LABS: *BILIRUBIN,URIN 1+ (NEGATIVE)
[2023-10-17 08:33] LABS: DIFFERENTIAL COMMENT 1
[2023-10-17 09:44] LABS: RBC,URINE 0-3 /HPF (0-3); WBC,URINE 0-3 /HPF (0-3)
[2023-10-17 09:45] LABS: BACTERIA,URINE FEW /HPF (NONE SEEN); MUCUS,URINE MODERATE /LPF (0-FEW); SQUAMOUS EPITHELIAL CELL,UR MODERATE /HPF (NONE SEEN)
[2023-10-17 10:36] LABS: CALCIUM 8.9 mg/dL (8.5-10.1); CARBON DIOXIDE 25 mmol/L (21-32); CHLORIDE 102 mmol/L (98-107); GLUCOSE 206 mg/dL (74-106); POTASSIUM 3.8 mmol/L (3.5-5.1); SODIUM SERUM 136 mmol/L (136-145); UREA NITROGEN, BLOOD 12 mg/dL (7-18)
[2023-10-17 10:42] LABS: ALANINE AMINOTRANSFERASE 26 U/L (16-63); ALBUMIN 3.2 g/dL (3.4-5.0); ALKALINE PHOSPHATASE 90 U/L (50-136); ASPARTATE AMINOTRANSFERASE 22 U/L (15-37); BILIRUBIN,TOTAL 0.9 mg/dL (0.2-1.0); TOTAL PROTEIN, SERUM 7.4 g/dL (6.4-8.2)
[2023-10-17 10:50] VITALS: TEMP 97.4
== END 2023-10-17 11:02 | disposition home or self-care (01) ==
LOC: DS 07:27
PROVIDERS: ATTEND Surgery
DX: Z12.11 Encounter for screening for malignant neoplasm of colon (principal); Z85.038 Personal history of other malignant neoplasm of large intestine; K63.89 Other specified diseases of intestine; K63.5 Polyp of colon; I10 Essential (primary) hypertension; K21.9 Gastro-esophageal reflux disease without esophagitis; D64.9 Anemia, unspecified; E11.9 Type 2 diabetes mellitus without complications; F32.9 Major depressive disorder, single episode, unspecified; F41.9 Anxiety disorder, unspecified; E78.5 Hyperlipidemia, unspecified; Z79.82 Long term (current) use of aspirin; Z79.84 Long term (current) use of oral hypoglycemic drugs; Z79.899 Other long term (current) drug therapy; Z79.01 Long term (current) use of anticoagulants; Z98.890 Other specified postprocedural states
CPT/HCPCS: 36415; 85025; 85730; A4663; J3490; J7040

== ENCOUNTER 2023-10-31 06:08 | Inpatient (IN) | payer MEDICARE, OTHER ==
[~2023-10-31] VITALS: Ht 172.7 cm; Wt 97.1 kg
[~2023-10-31 06:08] MED LIST changes: -ALPR2TAB7 MT; +ALPR2TAB7 PO; -ASPI-1420 MT; +ASPI-1420 PO; -ATEN25TA MT; +ATEN25TA PO; +HYDROMORPHONE 2 MG/1 ML DISP.SYRIN IV PRN; +IV LACTATED RINGERS SOLUTION 1,000 ML IV PRN; -METF-867 MT; +METF-867 PO; +METRONIDAZOLE 500 MG/NS 100ML 500 MG in PREMIXED 1 EACH IV SCH; +levoFLOXacin 750MG/D5W 750 MG in PREMIXED 1 EACH IV SCH
[2023-10-31] MEDS ORDERED: CIPROFLOXACIN IV 400 MG in PREMIXED 1 EACH IV ONE (07:15)
[2023-10-31] MEDS ORDERED: METRONIDAZOLE 500 MG/NS 100ML 500 MG in PREMIXED 1 EACH IV ONE (07:15)
[2023-10-31] MEDS ORDERED: FLEET ENEMA 133 ML BOTTLE RC ONE (07:15)
[2023-10-31] MEDS ORDERED: MIDAZOLAM HCL 2 MG/2 ML VIAL ONE (07:17)
[2023-10-31] MEDS ORDERED: FENTANYL CITRATE 250 MCG/5 ML AMPUL ONE (07:17)
[2023-10-31] MEDS ORDERED: ALBUMIN HUMAN 5% 250 ML ONE ×2 (07:18→11:26)
[2023-10-31] MEDS ORDERED: FAMOTIDINE. 20 MG/2 ML VIAL IV ONE (07:18)
[2023-10-31] MEDS ORDERED: BUPIVACAINE PF 0.5% 30 ML VIAL ONE (07:20)
[2023-10-31] MEDS ORDERED: ROPIVACAINE 0.2% ONE (07:26)
[2023-10-31] MEDS ORDERED: LIDOCAINE 1%-EPI 1:100,000 20 ML VIAL ONE (11:09)
[2023-10-31] MEDS ORDERED: BUPIVACAINE 0.25% 30 ML VIAL ONE (11:09)
[2023-10-31] MEDS ORDERED: BACITRACIN/POLYMYXIN B OINT 15 GM TUBE ONE (11:29)
[2023-10-31] MEDS ORDERED: HYDROMORPHONE 1 MG/1 ML DISP.SYRIN ONE (13:04)
[2023-10-31] MEDS ORDERED: levoFLOXacin 750MG/D5W 750 MG in PREMIXED 1 EACH IV SCH (13:15)
[2023-10-31] MEDS ORDERED: IV LACTATED RINGERS SOLUTION 1,000 ML IV PRN (13:15)
[2023-10-31] MEDS ORDERED: HYDROMORPHONE 2 MG/1 ML DISP.SYRIN IV PRN (13:15)
[2023-10-31] MEDS ORDERED: METRONIDAZOLE 500 MG/NS 100ML 500 MG in PREMIXED 1 EACH IV SCH (14:00)
[2023-10-31] MEDS ORDERED: VECURONIUM BROMIDE 10 MG VIAL IV ONE (17:23)
[2023-10-31] MEDS ORDERED: DEXAMETHASONE SOD PHOSPHATE 4 MG INJ ONE (17:23)
[2023-10-31] MEDS ORDERED: ONDANSETRON 4 MG/2 ML VIAL ONE (17:23)
[2023-10-31] MEDS ORDERED: EPHEDRINE SULFATE 50 MG/ML AMPUL ONE (17:23)
[2023-10-31] MEDS ORDERED: METOCLOPRAMIDE HCL 10 MG/2 ML VIAL ONE (17:23)
[2023-10-31] MEDS ORDERED: PROPOFOL 200 MG/20 ML BOTTLE ONE (17:23)
[2023-10-31] MEDS ORDERED: LIDOCAINE-MPF 2% 5 ML VIAL ONE (17:23)
[2023-10-31 20:00] VITALS: BP 119/64; TEMP 98.8; O2SAT 94
[2023-10-31] MEDS: IV LACTATED RINGERS SOLUTION 1,000 ML IV PRN (20:06)
[2023-11-01] MEDS: METRONIDAZOLE 500 MG/NS 100ML 500 MG in PREMIXED 1 EACH IV SCH ×3 (00:05→17:00)
[2023-11-01] MEDS: levoFLOXacin 750MG/D5W 750 MG in PREMIXED 1 EACH IV SCH (00:41)
[2023-11-01] MEDS: IV LACTATED RINGERS SOLUTION 1,000 ML IV PRN ×2 (01:30→21:54)
[2023-11-01 04:00] VITALS: BP 131/66; TEMP 97.5; O2SAT 94
[2023-11-01] MEDS: HYDROMORPHONE 2 MG/1 ML DISP.SYRIN IV PRN ×3 (06:08→20:37)
[2023-11-01 06:19] LABS: BASOPHILS % (AUTO) 0.1 % (0.0-2.0); HEMATOCRIT 33.5 % (36.7-47.1); HEMOGLOBIN 11.5 g/dL (12.5-16.3); LYMPHOCYTES % (AUTO) 9.6 % (20.5-51.5); MEAN CORPUSCULAR HEMOGLOBIN 34.2 uug (23.8-33.4); MEAN CORPUSCULAR HGB CONC 34 g/dL (32.5-36.3); MEAN CORPUSCULAR VOLUME 99.5 fL (73.0-96.2); MONOCYTES # (AUTO) 0.8 K/uL (0.1-1.30); MONOCYTES % (AUTO) 8.1 % (0.0-11.0); NEUTROPHILS # (AUTO) 8.5 K/uL (1.8-8.9); NEUTROPHILS % (AUTO) 82.2 % (38.5-71.5); PLATELET COUNT (AUTO) 93 K/uL (152-348); RED BLOOD CELL COUNT(AUTO) 3.36 MIL/uL (4.06-5.63); RED CELL DISTRIBUTION WIDTH 14.7 % (12.1-16.2); WHITE BLOOD COUNT (AUTO) 10.4 K/uL (3.6-10.2)
[2023-11-01 06:42] LABS: CALCIUM 8.4 mg/dL (8.5-10.1); CARBON DIOXIDE 26 mmol/L (21-32); CHLORIDE 105 mmol/L (98-107); CREATININE 1.1 mg/dL (0.6-1.3); GLUCOSE 111 mg/dL (74-106); MAGNESIUM 1.4 mg/dL (1.8-2.4); PHOSPHOROUS 3.9 mg/dL (2.5-4.9); POTASSIUM 4.4 mmol/L (3.5-5.1); SODIUM SERUM 141 mmol/L (136-145); UREA NITROGEN, BLOOD 15 mg/dL (7-18)
[2023-11-01 06:46] LABS: DIFFERENTIAL COMMENT 1
[2023-11-01] MEDS: PANTOPRAZOLE SODIUM 40 MG VIAL IV SCH (09:35)
[2023-11-01] MEDS: MAGNESIUM SULFATE/D5W 100 ML IV SCH ×4 (10:38→15:14)
[2023-11-01] MEDS ORDERED: GABA300C PO (10:56)
[2023-11-01 11:14] VITALS: BP 124/58; TEMP 98.4; O2SAT 95
[2023-11-01 15:20] VITALS: BP 117/57; TEMP 98.3; O2SAT 95
[2023-11-01] MEDS: CELECOXIB 200 MG CAPSULE PO SCH ×2 (19:00→21:00)
[2023-11-01 20:00] VITALS: BP 134/67; TEMP 97.6; O2SAT 94
[2023-11-01] MEDS ORDERED: LORAZEPAM 2 MG/1 ML VIAL IV PRN (20:30)
[2023-11-01] MEDS ORDERED: ACETAMINOPHEN 325 MG TABLET PO PRN (20:30)
[2023-11-01] MEDS: GABAPENTIN 300 MG CAPSULE PO SCH (22:00)
[2023-11-02] VITALS (8 sets, daily range): BP systolic 116–142; BP diastolic 56–74; TEMP 97.8–98.6; O2SAT 93–95
[2023-11-02] MEDS: levoFLOXacin 750MG/D5W 750 MG in PREMIXED 1 EACH IV SCH (00:33)
[2023-11-02] MEDS: METRONIDAZOLE 500 MG/NS 100ML 500 MG in PREMIXED 1 EACH IV SCH ×3 (01:24→17:50)
[2023-11-02] MEDS: IV LACTATED RINGERS SOLUTION 1,000 ML IV PRN (05:59)
[2023-11-02] MEDS ORDERED: ACETAMINOPHEN 325 MG TABLET PO SCH ×2 (06:00→12:00)
[2023-11-02] MEDS: GABAPENTIN 300 MG CAPSULE PO SCH ×3 (06:00→21:05)
[2023-11-02] MEDS: ACETAMINOPHEN 325 MG TABLET PO SCH ×3 (06:00→21:05)
[2023-11-02] MEDS: HYDROMORPHONE 2 MG/1 ML DISP.SYRIN IV PRN (07:14)
[2023-11-02 07:31] LABS: CALCIUM 8.3 mg/dL (8.5-10.1); CREATININE 1.1 mg/dL (0.6-1.3); MAGNESIUM 1.9 mg/dL (1.8-2.4); POTASSIUM 3.8 mmol/L (3.5-5.1)
[2023-11-02] MEDS: PANTOPRAZOLE SODIUM 40 MG VIAL IV SCH (08:53)
[2023-11-02] MEDS: CELECOXIB 200 MG CAPSULE PO SCH ×2 (09:44→21:05)
[2023-11-02] MEDS: MAGNESIUM SULFATE/D5W 100 ML IV SCH ×3 (11:50→13:54)
[2023-11-02] MEDS ORDERED: GABAPENTIN 300 MG CAPSULE PO SCH (12:00)
[2023-11-02] MEDS ORDERED: CELECOXIB 200 MG CAPSULE PO SCH (12:00)
[2023-11-02 19:14] LABS: IRON, SERUM 37 ug/dL (50-175)
[2023-11-02] MEDS: ALPRAZOLAM 0.5 MG TABLET PO PRN (21:17)
[2023-11-03] MEDS: METRONIDAZOLE 500 MG/NS 100ML 500 MG in PREMIXED 1 EACH IV SCH ×2 (02:19→08:23)
[2023-11-03] MEDS: levoFLOXacin 750MG/D5W 750 MG in PREMIXED 1 EACH IV SCH (02:19)
[2023-11-03] MEDS: ACETAMINOPHEN 325 MG TABLET PO SCH ×3 (06:18→21:20)
[2023-11-03] MEDS: GABAPENTIN 300 MG CAPSULE PO SCH ×3 (06:18→21:21)
[2023-11-03] MEDS: IV LACTATED RINGERS SOLUTION 1,000 ML IV PRN (06:29)
[2023-11-03 07:03] LABS: BASOPHILS % (AUTO) 0.3 % (0.0-2.0); EOSINOPHILS % (AUTO) 0.4 % (0.0-7.0); HEMATOCRIT 35.1 % (36.7-47.1); HEMOGLOBIN 12.1 g/dL (12.5-16.3); LYMPHOCYTES # (AUTO) 1.4 K/uL (0.8-4.8); LYMPHOCYTES % (AUTO) 21.6 % (20.5-51.5); MEAN CORPUSCULAR HGB CONC 34 g/dL (32.5-36.3); MONOCYTES # (AUTO) 0.5 K/uL (0.1-1.30); MONOCYTES % (AUTO) 7.9 % (0.0-11.0); NEUTROPHILS # (AUTO) 4.4 K/uL (1.8-8.9); NEUTROPHILS % (AUTO) 69.8 % (38.5-71.5); PLATELET COUNT (AUTO) 99 K/uL (152-348); RED BLOOD CELL COUNT(AUTO) 3.54 MIL/uL (4.06-5.63); RED CELL DISTRIBUTION WIDTH 14.3 % (12.1-16.2); WHITE BLOOD COUNT (AUTO) 6.3 K/uL (3.6-10.2)
[2023-11-03 07:19] LABS: DIFFERENTIAL COMMENT 1
[2023-11-03 07:26] LABS: ALANINE AMINOTRANSFERASE 20 U/L (16-63); ALBUMIN 2.9 g/dL (3.4-5.0); ALKALINE PHOSPHATASE 65 U/L (50-136); ASPARTATE AMINOTRANSFERASE 17 U/L (15-37); BILIRUBIN,TOTAL 1.1 mg/dL (0.2-1.0); CALCIUM 8.7 mg/dL (8.5-10.1); CARBON DIOXIDE 25 mmol/L (21-32); CHLORIDE 104 mmol/L (98-107); CHOLESTEROL 117 mg/dL (<200); CREATININE 0.9 mg/dL (0.6-1.3); GLUCOSE 102 mg/dL (74-106); HDL CHOLESTEROL 46 mg/dL (40-60); MAGNESIUM 2.2 mg/dL (1.8-2.4); POTASSIUM 3.8 mmol/L (3.5-5.1); SODIUM SERUM 137 mmol/L (136-145); TRIGLYCERIDES 83 MG/DL (30-150); UREA NITROGEN, BLOOD 16 mg/dL (7-18)
[2023-11-03 07:33] LABS: THYROID STIMULATING HORMONE 1.015 mIU/mL (0.358-3.740)
[2023-11-03 08:00] VITALS: BP 135/63; TEMP 98.1; O2SAT 98
[2023-11-03] MEDS: CELECOXIB 200 MG CAPSULE PO SCH ×2 (08:23→21:20)
[2023-11-03] MEDS: PANTOPRAZOLE SODIUM 40 MG VIAL IV SCH (08:23)
[2023-11-03 12:00] VITALS: BP_SYST 128; BP_SYST 145; BP_DIAS 69; BP_DIAS 77; TEMP 97.2; TEMP 97.5; TEMP 98.6; O2SAT 97; O2SAT 99
[2023-11-03 15:41] VITALS: BP 125/64; TEMP 98.6; O2SAT 98
[2023-11-03 16:00] VITALS: O2SAT 97
[2023-11-03 20:15] VITALS: BP 137/65; TEMP 98.5; O2SAT 93
[2023-11-03] MEDS: ALPRAZOLAM 0.5 MG TABLET PO PRN (21:21)
[2023-11-03 22:05] VITALS: O2SAT 96
[2023-11-04 04:05] VITALS: BP 122/64; TEMP 97.9; O2SAT 92
[2023-11-04] MEDS: ACETAMINOPHEN 325 MG TABLET PO SCH (05:58)
[2023-11-04] MEDS: GABAPENTIN 300 MG CAPSULE PO SCH (05:58)
[2023-11-04] MEDS ORDERED: PHENAZOPYRIDINE HCL 100 MG TABLET PO SCH (06:00)
[2023-11-04 08:00] VITALS: BP 117/69; TEMP 97.9; O2SAT 98
[2023-11-04] MEDS: CELECOXIB 200 MG CAPSULE PO SCH (08:51)
[2023-11-04] MEDS: PANTOPRAZOLE SODIUM 40 MG VIAL IV SCH (08:51)
[2023-11-04 12:00] VITALS: BP 132/62; TEMP 98.6; O2SAT 97
[2023-11-04 18:07] VITALS: TEMP 98.6
== END 2023-11-04 14:10 | DRG 337 ==
LOC: DS 06:08 → MEDSURG3 16:00 → MED 11-02 08:00 → MEDSURG3 11-03 03:03
PROVIDERS: ADMIT Surgery; ATTEND Internal Medicine
PROC: 0DSK0ZZ Reposition Ascending Colon, Open Approach (ICD-10-PCS; principal; 2023-10-31)
PROC: 0DSL0ZZ Reposition Transverse Colon, Open Approach (ICD-10-PCS; 2023-10-31)
PROC: 0WQF0ZZ Repair Abdominal Wall, Open Approach (ICD-10-PCS; 2023-10-31)
PROC: 0DN80ZZ Release Small Intestine, Open Approach (ICD-10-PCS; 2023-10-31)
DX: Z43.3 Encounter for attention to colostomy (principal); I10 Essential (primary) hypertension; E66.9 Obesity, unspecified; Z68.32 Body mass index [BMI] 32.0-32.9, adult; Z85.038 Personal history of other malignant neoplasm of large intestine; E83.42 Hypomagnesemia; Z90.49 Acquired absence of other specified parts of digestive tract; K66.0 Peritoneal adhesions (postprocedural) (postinfection); R59.0 Localized enlarged lymph nodes; Z87.891 Personal history of nicotine dependence; E78.5 Hyperlipidemia, unspecified; K80.20 Calculus of gallbladder without cholecystitis without obstruction; D53.9 Nutritional anemia, unspecified; E11.65 Type 2 diabetes mellitus with hyperglycemia; F41.9 Anxiety disorder, unspecified; F32.A Depression, unspecified; K21.9 Gastro-esophageal reflux disease without esophagitis; M15.9 Polyosteoarthritis, unspecified; Z92.21 Personal history of antineoplastic chemotherapy; D72.829 Elevated white blood cell count, unspecified; Z79.899 Other long term (current) drug therapy; Z79.84 Long term (current) use of oral hypoglycemic drugs
CPT/HCPCS: 36415; 83550; 83735; 84100; 84443; 85025; 85730; A4663; C9113; G0378; J0744; J1100; J1170; J1956; J2060; J2250; J2405; J2765; J2795; J3010; J3475; J3490; J7040; J7120; P9045